=== PATIENT | female | born 1955 | race Caucasian/White ===

== ENCOUNTER 2021-12-13 22:04 | Inpatient (IN) | payer MEDICARE, OTHER ==
[~2021-12-13] VITALS: Ht 162.6 cm; Wt 72.6 kg
--- NOTE | 2021-12-13 22:30 | NUR ---
[facility]IBRA [facility] FROM SNF FOR C/O AMS, N/A AND FEVER X 2-3 DAYS. PLACED ON BED, AWAKE ALERT, BREATHING EVEN AND UNLABORED SATURATING AT 96%RA. HX OF CEREBRAL INFARCTION WITH LEFT SIDED WEAKNESS.
[2021-12-13] MEDS ORDERED: ONDANSETRON HCL/PF 4 MG/2 ML VIAL IVP ONE (23:00)
[2021-12-13] MEDS ORDERED: ONDANSETRON HCL/PF 4 MG/2 ML VIAL ONE (23:05)
--- NOTE | 2021-12-13 23:11 | NUR ---
BLOOD DRAWN AND SENT TO LAB
--- NOTE | 2021-12-13 23:12 | NUR ---
X-RAY TECH AT BEDSIDE
--- NOTE | 2021-12-13 23:25 | NUR ---
SWAB FOR COVID19 SENT TO LAB
--- NOTE | 2021-12-13 23:31 | NUR ---
PT BEING TRANSPORTED TO CT [facility]IA [facility]
[2021-12-13 23:34] LABS: BASOPHILS % (AUTO) 0.2 % (0.0-2.0); HEMATOCRIT 34 % (33-45); HEMOGLOBIN 11.1 g/dL (11.5-14.8); LYMPHOCYTES # (AUTO) 0.8 K/uL (0.8-4.8); LYMPHOCYTES % (AUTO) 3.8 % (20.0-44.0); MEAN CORPUSCULAR HGB CONC 33 g/dl (31.0-36.0); MEAN CORPUSCULAR VOLUME 87 fL (82-100); MONOCYTES # (AUTO) 1.3 K/uL (0.1-1.30); MONOCYTES % (AUTO) 6.4 % (2.0-12.0); NEUTROPHILS # (AUTO) 18.1 K/uL (1.8-8.9); NEUTROPHILS % (AUTO) 89.6 % (43.0-81.0); PLATELET COUNT (AUTO) 178 K/uL (150-450); RED BLOOD CELL COUNT(AUTO) 3.89 MIL/uL (4.0-5.2); WHITE BLOOD COUNT (AUTO) 20.2 K/uL (4.3-11.0)
[2021-12-13 23:46] LABS: CALCIUM, SERUM 8.5 mg/dL (8.5-10.1); CARBON DIOXIDE 25 mmol/L (21-32); CHLORIDE 101 mmol/L (98-107); GLUCOSE 164 mg/dL (74-106); POTASSIUM 4.3 mmol/L (3.5-5.1); SODIUM SERUM 135 mmol/L (136-145); UREA NITROGEN, BLOOD 51 mg/dL (7-18)
[2021-12-14] LABS: ALANINE AMINOTRANSFERASE 16 U/L (12-78); ALBUMIN 2.7 g/dL (3.4-5.0); ALKALINE PHOSPHATASE 73 U/L (46-116); ASPARTATE AMINOTRANSFERASE 17 U/L (15-37); BILIRUBIN,DIRECT 0.2 mg/dL (0.0-0.2); BILIRUBIN,TOTAL 0.6 mg/dL (0.2-1.0); TOTAL PROTEIN, SERUM 6.4 g/dL (6.4-8.2)
[2021-12-14 00:41] LABS: THYROID STIMULATING HORMONE 0.816 uIU/mL (0.358-3.74)
--- NOTE | 2021-12-14 00:55 | NUR ---
URINE COLLECTED AND SENT TO LAB
[2021-12-14 01:55] LABS: BILIRUBIN,URINE NEGATIVE (NEGATIVE); COLOR,URINE YELLOW (YELLOW); LEUKOCYTE ESTERASE ,URINE MODERATE (NEGATIVE); NITRITE, URINE POSITIVE (NEGATIVE); PROTEIN,URINE 30 mg/dl (NEGATIVE); UGLUCOSE NEGATIVE (NEGATIVE); UROBILINOGEN,URINE 0.2 EU/dL (0.2)
[2021-12-14 02:21] LABS: BACTERIA,URINE Few /HPF (None Seen); SQUAMOUS EPITHELIAL CELL,UR Few /HPF (None Seen)
[2021-12-14] MEDS ORDERED: CEFTRIAXONE 1GM BAG (ER ONLY) 1 GM/50 ML PIGGYBACK IV ONE (03:00)
[2021-12-14] MEDS ORDERED: ACETAMINOPHEN 325 MG TABLET PO PRN (03:00)
[2021-12-14] MEDS ORDERED: ONDANSETRON HCL/PF 4 MG/2 ML VIAL IVP PRN (03:00)
[2021-12-14] MEDS ORDERED: IV NS 0.9% 1,000 ML BAG IV ONE (03:00)
[2021-12-14] MEDS ORDERED: MORPHINE SULFATE INJ 2 MG/ML DISP.SYRIN IV PRN (03:00)
[2021-12-14] MEDS ORDERED: MAG HYDROX/AL HYDROX/SIMETH 30 ML UDC PO PRN (03:00)
[2021-12-14] MEDS: IV NS 0.9% 1,000 ML IV SCH ×3 (03:36→16:43)
--- NOTE | 2021-12-14 07:25 | NUR ---
NOT YET AVAILABLE FOR REPORT PER HOSPITAL ACCOUNT MANAGER
[2021-12-14 07:37] LABS: BASOPHILS % (AUTO) 0.1 % (0.0-2.0); HEMATOCRIT 35 % (33-45); HEMOGLOBIN 11.4 g/dL (11.5-14.8); LYMPHOCYTES # (AUTO) 0.8 K/uL (0.8-4.8); LYMPHOCYTES % (AUTO) 4.5 % (20.0-44.0); MEAN CORPUSCULAR HGB CONC 32 g/dl (31.0-36.0); MEAN CORPUSCULAR VOLUME 89 fL (82-100); MONOCYTES % (AUTO) 6.2 % (2.0-12.0); NEUTROPHILS # (AUTO) 15.1 K/uL (1.8-8.9); NEUTROPHILS % (AUTO) 89.2 % (43.0-81.0); PLATELET COUNT (AUTO) 161 K/uL (150-450); RED BLOOD CELL COUNT(AUTO) 3.99 MIL/uL (4.0-5.2)
[2021-12-14] MEDS ORDERED: MAGN400O6 PO (07:43)
[2021-12-14] MEDS ORDERED: ACET-868 PO (07:43)
[2021-12-14] MEDS ORDERED: ATOR40TA PO (07:43)
[2021-12-14] MEDS ORDERED: LOPE2TAB25 PO (07:43)
[2021-12-14] MEDS ORDERED: METO25TA20 PO (07:43)
[2021-12-14] MEDS ORDERED: ONDA4TAB5 PO (07:43)
[2021-12-14] MEDS ORDERED: NA P133E RC (07:43)
[2021-12-14] MEDS ORDERED: IPRA3AMP23 IH (07:43)
[2021-12-14] MEDS ORDERED: TAMS-12 PO (07:43)
[2021-12-14] MEDS ORDERED: LISI-768 PO (07:43)
[2021-12-14] MEDS ORDERED: BISA10SU11 RC (07:43)
[2021-12-14] MEDS ORDERED: BETA30LO2 TP (07:43)
[2021-12-14] MEDS ORDERED: PARO40TA4 PO (07:43)
[2021-12-14] MEDS ORDERED: LEVO50TA8 PO (07:43)
[2021-12-14] MEDS ORDERED: FAMO20TA8 PO (07:43)
[2021-12-14] MEDS ORDERED: LEVE500T9 PO (07:43)
[2021-12-14] MEDS ORDERED: SENN-261 PO (07:43)
--- NOTE | 2021-12-14 07:44 | NUR ---
PER JA, ROOM 310-1. PT REPORT GIVEN TO KAYLA AMADOR
[2021-12-14 07:45] LABS: CALCIUM, SERUM 8.7 mg/dL (8.5-10.1); CREATININE 2.2 mg/dL (0.6-1.3); POTASSIUM 4.5 mmol/L (3.5-5.1)
--- NOTE | 2021-12-14 08:30 | NUR ---
PT TRANSFERRED TO UNIT VIA GURNEY. WARM HANDOFF GIVEN TO RN ASSIGNED
--- NOTE | 2021-12-14 10:00 | NUR ---
RN ADMITTING NOTES PATIENT ARRIVED FROM ED VIA GURNEY ACCOMPANIED BY 1 ER STAFF. PATIENT TRANSFERRED TO BED, ORIENTED TO STAFF AND UNIT. A/Ox1, IV ACCESS ON R FA #20 G. ON 2L VIA NC, NO S/S OF RESPIRATORY DISTRESS. V/S TAKEN AND STABLE. FULL BODY CHECK DONE, SKIN INTACT. TELE MONITOR ATTACHED TO PATIENT SHOWING A-FIB WITH 104 HR. CARDIAC: HEART SOUNDS WNL, LUNG SOUNDS: SLIGHTLY DIMINISHED THROUGHOUT, GI/ INCONTINENT, SKIN INTACT, BED REST FOR NOW. SAFETY MEASURES IN PLACE: BED LOCKED AND IN LOWEST POSITION, SIDE RAILS UP x2, CALL LIGHT WITHIN REACH. WILL CONTINUE TO MONITOR.
[2021-12-14 11:31] VITALS: BP 137/62
[2021-12-14 11:48] LABS: CREATININE, URINE 92.7 MG/DL (30.0-125.0)
[2021-12-14 12:00] VITALS: BP 124/61
[2021-12-14] MEDS ORDERED: ENOXAPARIN SODIUM 40 MG/0.4 ML DISP.SYRIN SQ SCH (12:00)
[2021-12-14] MEDS: ENOXAPARIN SODIUM 30 MG/0.3 ML DISP.SYRIN SQ SCH (12:33)
[2021-12-14] MEDS: AZITHROMYCIN 500 MG in IV D5W 250 ML IV SCH (12:33)
[2021-12-14 16:00] VITALS: BP 125/67
--- NOTE | 2021-12-14 17:00 | NUR ---
RN NOTES PATIENT COMPLAINED OF PAIN, PRN TYLENOL GIVEN, WILL CONTINUE TO MONITOR.
--- NOTE | 2021-12-14 18:35 | NUR ---
BUSINESS LAW TEACHER CLOSING NOTES PATIENT SLEEPING IN BED, STABLE ON 2L VIA NC, NO S/S OF RESPIRATORY DISTRESS. A/Ox1, RESPONDS TO VERBAL AND TACTILE STIMULI. IV ACCESS R FA #20 WITH NS RUNNING 75 ML/HR. INTACT AND PATENT, NO S/S OF INFILTRATION. TELE MONITORING SHOWS A-FIB HR OF 92. INCONTINENT. ALL PRESCRIBED MEDICATION ADMINISTERED. SAFETY MEASURES MAINTAINED: BED LOCKED AND IN LOWEST POSITION, SIDE RAILS UP x3, BED ALARM ON, HOB ELEVATED, AND CALL LIGHT WITHIN REACH. WILL ENDORSE TO NEXT SHIFT ANY STEPHANIE.
--- NOTE | 2021-12-14 19:40 | NUR ---
ELECTRIC LIFT TRUCK DRIVER OPENING NOTES; RECEIVED PATIENT SLEEPING IN BED,BUT EASY TO AROUSED.AOX1-2,ON 2L VIA NC IZABELLA WELL,NO SIGN SOB/DISTRESS NOTED. IV ACCESS R FA #20 WITH NS RUNNING 75 ML/HR. INTACT AND PATENT, SAFETY MEASURES MAINTAINED: BED LOCKED AND IN LOWEST POSITION, SIDE RAILS UP x3, BED ALARM ON, CALL LIGHT WITHIN REACH. WILL CONTINUE TO MONITOR.
[2021-12-14 20:00] VITALS: BP 107/65
[2021-12-14] MEDS ORDERED: CEFEPIME 1 GM VIAL ONE (22:31)
[2021-12-14] MEDS: CEFEPIME 2 GM in IV D5W 100 ML IV SCH (23:35)
[2021-12-15] VITALS: BP 118/61
[2021-12-15 04:00] VITALS: BP 124/77
--- NOTE | 2021-12-15 06:23 | NUR ---
CANARY RAISER OPENING NOTES; PATIENT IN BED SLEEPING BUT EASY TO AROUSED.AOX2,ON 2L O2 VIA NC IZABELLA WELL,NO SIGN SOB/DISTRESS NOTED.NO COMPLAINE OF PAIN/DISCOMFORT DURING SHIFT,DUE MEDS GIVEN ORDER,ALL NEEDS ATTENDED,KEPT PT CLEANED AND DRY AT ALL TIME, IV ACCESS R FA #20 WITH NS RUNNING 75 ML/HR. INTACT AND PATENT, SAFETY MEASURES MAINTAINED: BED LOCKED AND IN LOWEST POSITION, SIDE RAILS UP x3, CALL LIGHT WITHIN REACH. WILL ENDORSED TO NEXT SHIFT.
[2021-12-15 06:37] LABS: BASOPHILS % (AUTO) 0.1 % (0.0-2.0); EOSINOPHILS % (AUTO) 0.2 % (0.0-6.0); HEMATOCRIT 30 % (33-45); HEMOGLOBIN 9.8 g/dL (11.5-14.8); LYMPHOCYTES # (AUTO) 0.6 K/uL (0.8-4.8); LYMPHOCYTES % (AUTO) 5.6 % (20.0-44.0); MEAN CORPUSCULAR HGB CONC 33 g/dl (31.0-36.0); MEAN CORPUSCULAR VOLUME 88 fL (82-100); MONOCYTES # (AUTO) 0.7 K/uL (0.1-1.30); MONOCYTES % (AUTO) 6.1 % (2.0-12.0); NEUTROPHILS # (AUTO) 9.5 K/uL (1.8-8.9); PLATELET COUNT (AUTO) 132 K/uL (150-450); RED BLOOD CELL COUNT(AUTO) 3.37 MIL/uL (4.0-5.2); WHITE BLOOD COUNT (AUTO) 10.8 K/uL (4.3-11.0)
[2021-12-15 07:00] LABS: ALBUMIN 2.2 g/dL (3.4-5.0); BILIRUBIN,TOTAL 0.6 mg/dL (0.2-1.0); CALCIUM, SERUM 8.2 mg/dL (8.5-10.1); CREATININE 2.2 mg/dL (0.6-1.3); MAGNESIUM 1.9 mg/dL (1.8-2.4); PHOSPHORUS 3.9 mg/dL (2.5-4.9); POTASSIUM 4.3 mmol/L (3.5-5.1); TOTAL PROTEIN, SERUM 5.9 g/dL (6.4-8.2)
--- NOTE | 2021-12-15 07:40 | NUR ---
ms rn received on bed, awake,alert oriented x4,not in any form of distress. respirations evem and unlabored,no sob noted, repositioned for comfort,will monitor patient.
[2021-12-15 08:00] VITALS: BP 141/75
[2021-12-15] MEDS ORDERED: CEFTRIAXONE 1 G in IV D5W 50 ML IV SCH (09:00)
--- NOTE | 2021-12-15 09:00 | NUR ---
ms myles breakfast served,due meds given, tolerated well.
[2021-12-15] MEDS: IV NS 0.9% 1,000 ML IV SCH ×2 (13:58→19:00)
[2021-12-15] MEDS: AZITHROMYCIN 500 MG in IV D5W 250 ML IV SCH (13:58)
[2021-12-15] MEDS: ENOXAPARIN SODIUM 30 MG/0.3 ML DISP.SYRIN SQ SCH (14:04)
[2021-12-15 16:00] VITALS: BP 142/74
[2021-12-15] MEDS ORDERED: BISACODYL SUPP (10 MG) 10 MG/SUPP.RECT SUPP.RECT RC PRN (17:00)
--- NOTE | 2021-12-15 17:00 | NUR ---
ms shar hilton reconcilled meds,given tolerated well.
[2021-12-15] MEDS ORDERED: ALBUTEROL FS 2.5 MG/3 ML VIAL.NEB NEB PRN (17:30)
[2021-12-15] MEDS: PAROXETINE HCL 20 MG TABLET PO SCH (17:59)
[2021-12-15] MEDS ORDERED: IPRATROPIUM NEB FS 0.5 MG/2.5 ML AMPUL.NEB NEB PRN (18:00)
[2021-12-15] MEDS ORDERED: ALBUTEROL FS 2.5 MG/0.5 ML VIAL.NEB NEB PRN (18:00)
[2021-12-15] MEDS: METOPROLOL TARTRATE 25 MG TABLET PO SCH (18:00)
--- NOTE | 2021-12-15 18:38 | NUR ---
ms rn on bed, no distress noted,all needs attended, pt is now on med/surge status.
--- NOTE | 2021-12-15 19:34 | NUR ---
WASH MILL OPERATOR OPENING NOTES; RECEIVED PATIENT SLEEPING IN BED,BUT EASY TO AROUSED.AOX1-2,ON 2L VIA NC IZABELLA WELL,NO SIGN SOB/DISTRESS NOTED. IV ACCESS R FA #20 WITH NS RUNNING 75 ML/HR. INTACT AND PATENT, SAFETY MEASURES MAINTAINED: BED LOCKED AND IN LOWEST POSITION, SIDE RAILS UP x3, BED ALARM ON, CALL LIGHT WITHIN REACH. WILL CONTINUE TO MONITOR.
[2021-12-15 20:04] VITALS: BP 122/67
[2021-12-15] MEDS: LEVETIRACETAM (250 MG) 250 MG TABLET PO SCH (21:20)
[2021-12-15] MEDS: FAMOTIDINE (20 MG) 20 MG TABLET PO SCH (21:20)
[2021-12-15] MEDS: SENNOSIDES 8.6 MG TABLET PO SCH (21:20)
[2021-12-15] MEDS: ATORVASTATIN 40 MG TABLET PO SCH (21:21)
[2021-12-15] MEDS: CEFEPIME 2 GM in IV D5W 100 ML IV SCH (21:23)
--- NOTE | 2021-12-16 06:08 | NUR ---
CHIEF NURSE ANESTHETIST CLOSING NOTES; PATIENT IN BED SLEEPING BUT EASY TO AROUSED.AOX2,ON 2L O2 VIA NC IZABELLA WELL,NO SIGN SOB/DISTRESS NOTED.NO COMPLAINE OF PAIN/DISCOMFORT DURING SHIFT,DUE MEDS GIVEN ORDER,ALL NEEDS ATTENDED,KEPT PT CLEANED AND DRY AT ALL TIME, IV ACCESS R FA #20 WITH NS RUNNING 75 ML/HR. INTACT AND PATENT, SAFETY MEASURES MAINTAINED: BED LOCKED AND IN LOWEST POSITION, SIDE RAILS UP x3, CALL LIGHT WITHIN REACH. WILL ENDORSED TO NEXT SHIFT.
--- NOTE | 2021-12-16 07:30 | NUR ---
RN Opening Note PT AOx3, able to express her own concerns. Discussed plan of care with pt, she agrees. Will continue to monitor throughout shift. All safety precautions taken, bed at lowest position, call light and table within reach. IV site with no signs of infiltration. Will provide care as needed, and medications as prescribed
[2021-12-16 08:00] VITALS: BP 138/72
[2021-12-16] MEDS: IV NS 0.9% 1,000 ML IV SCH ×2 (08:20→22:07)
[2021-12-16] MEDS: LEVETIRACETAM (250 MG) 250 MG TABLET PO SCH ×2 (09:06→22:06)
[2021-12-16] MEDS: TAMSULOSIN 0.4 MG CAP.SR.24H PO SCH (09:06)
[2021-12-16] MEDS: LEVOTHYROXINE SODIUM 50 MCG TABLET PO SCH (09:06)
[2021-12-16] MEDS: LISINOPRIL (5MG) 5 MG TABLET PO SCH (09:07)
[2021-12-16] MEDS: PAROXETINE HCL 20 MG TABLET PO SCH (09:07)
[2021-12-16] MEDS: METOPROLOL TARTRATE 25 MG TABLET PO SCH ×2 (09:08→17:24)
[2021-12-16] MEDS: ENOXAPARIN SODIUM 30 MG/0.3 ML DISP.SYRIN SQ SCH (11:39)
[2021-12-16] MEDS: AZITHROMYCIN 500 MG in IV D5W 250 ML IV SCH (12:44)
[2021-12-16 16:00] VITALS: BP 127/60
--- NOTE | 2021-12-16 18:23 | NUR ---
RN Closing Note. PT AOx2, able to express her own concerns. Vital Signs are Stable throughout shift. Administered medications as prescribed and provided care throughout shift as needed. All safety precautions taken, call light and table within reach, bed at lowest position. Will endorse to night nurse plan of care.
--- NOTE | 2021-12-16 19:30 | NUR ---
MSRN SLEEPING AWAKENED WHEN CALLED. ALERT/ORIENTED X2, COOPERATIVE. PRESENT IVF CONNECTED AGREED TO BE RECONNECTED AT LOWER RATE. ALL NEEDS ATTENDED. REPOSITIONED, KEPT COMFORTABLE. CONTINUED.
[2021-12-16 20:00] VITALS: BP 97/47
[2021-12-16] MEDS: FAMOTIDINE (20 MG) 20 MG TABLET PO SCH (22:05)
[2021-12-16] MEDS: ATORVASTATIN 40 MG TABLET PO SCH (22:05)
[2021-12-16] MEDS: SENNOSIDES 8.6 MG TABLET PO SCH (22:06)
[2021-12-16] MEDS: CEFEPIME 2 GM in IV D5W 100 ML IV SCH (22:08)
--- NOTE | 2021-12-17 06:32 | NUR ---
MSRN REMAINS UNCHANGED OBSERVED
--- NOTE | 2021-12-17 07:30 | NUR ---
RN Receiving Note PT AOx2-3, able to express her own concerns, no signs of distress or discomfort. Patient sleeping but easily aroused. Discussed plan of care with pt, she agrees. Patient with no signs of distress. IV fluids running as prescribed, no pain reported , no swelling, no redness. All Safety precautions taken, call light and table within reach, bed at lowest position. Will continue to monitor throughout shift, provide care as needed, and administer medications as prescribed
[2021-12-17 08:00] VITALS: BP 123/60
[2021-12-17] MEDS: LEVOTHYROXINE SODIUM 50 MCG TABLET PO SCH (08:15)
[2021-12-17] MEDS: TAMSULOSIN 0.4 MG CAP.SR.24H PO SCH (08:15)
[2021-12-17] MEDS: LISINOPRIL (5MG) 5 MG TABLET PO SCH (08:15)
[2021-12-17] MEDS: LEVETIRACETAM (250 MG) 250 MG TABLET PO SCH ×2 (08:16→21:15)
[2021-12-17] MEDS: METOPROLOL TARTRATE 25 MG TABLET PO SCH ×2 (08:16→17:20)
[2021-12-17] MEDS: PAROXETINE HCL 20 MG TABLET PO SCH (08:16)
[2021-12-17] MEDS: IV NS 0.9% 1,000 ML IV SCH (11:38)
[2021-12-17] MEDS: AZITHROMYCIN 500 MG in IV D5W 250 ML IV SCH (13:19)
[2021-12-17] MEDS: ENOXAPARIN SODIUM 30 MG/0.3 ML DISP.SYRIN SQ SCH (13:20)
[2021-12-17 16:00] VITALS: BP 111/57
--- NOTE | 2021-12-17 18:12 | NUR ---
RN Closing Note PT AOxx2 but able to express her concerns and needs. Patient did not eat much throughout shift, stated she is not hungry. All safety precautions taken, call light and table within reach, bed at lowest position. Administered medications and antibiotics as prescribed, IV with no signs of infiltration. Patient remained safe throughout shift.
[2021-12-17 18:41] LABS: CALCIUM, SERUM 8.1 mg/dL (8.5-10.1); CREATININE 1.8 mg/dL (0.6-1.3); POTASSIUM 3.9 mmol/L (3.5-5.1)
[2021-12-17 20:00] VITALS: BP 118/59
--- NOTE | 2021-12-17 20:18 | NUR ---
MS RN OPENING NOTE PATIENT SLEEPING IN BED, EASILY AWAKENED, PT ALERT/ORIENTED X 2. PATIENT STABLE ON 2LPM OF OXYGEN VIA NASAL CANNULA, NO S/S OF DISTRESS OR SOB NOTED, BREATHING EVEN AND UNLABORED. IV ACCESS ON RIGHT HAND #20G INTACT AND PATENT, INFUSING NS @ 75 ML/HR. SAFETY MEASURES IN PLACE: CALL LIGHT WITHIN REACH, SIDE RAILS UP X 2, BED LOCKED IN LOWEST POSITION, BED ALARM ON. WILL CONTINUE TO MONITOR PATIENT
[2021-12-17] MEDS: FAMOTIDINE (20 MG) 20 MG TABLET PO SCH (21:15)
[2021-12-17] MEDS: CEFEPIME 2 GM in IV D5W 100 ML IV SCH (21:15)
[2021-12-17] MEDS: ATORVASTATIN 40 MG TABLET PO SCH (21:15)
[2021-12-17] MEDS: SENNOSIDES 8.6 MG TABLET PO SCH (21:16)
[2021-12-18] MEDS: IV NS 0.9% 1,000 ML IV SCH ×2 (00:50→13:16)
--- NOTE | 2021-12-18 06:16 | NUR ---
MS RN CLOSING NOTE PATIENT SLEEPING IN BED, EASILY AWAKENED, PT ALERT/ORIENTED X 1-2, CONFUSED AT TIMES. NO SIGNIFICANT CHANGES THROUGHOUT SHIFT, PATIENT SLEPT WELL THROUGH THE NIGHT. PATIENT STABLE ON 2LPM OF OXYGEN VIA NASAL CANNULA, NO S/S OF DISTRESS OR SOB NOTED, BREATHING EVEN AND UNLABORED. IV ACCESS ON RIGHT HAND #20G INTACT AND PATENT, INFUSING NS @ 75 ML/HR. MEDICATIONS GIVEN ORDERED, PT NEEDS MET THROUGHOUT SHIFT. SAFETY MEASURES IN PLACE: CALL LIGHT WITHIN REACH, SIDE RAILS UP X 2, BED LOCKED IN LOWEST POSITION, BED ALARM ON. WILL ENDORSE TO DAYSHIFT NURSE FOR CONTINUITY OF CARE
--- NOTE | 2021-12-18 06:25 | NUR ---
MS KAYLA NOTES Patient in bed alert oriented x 2 with period of confusion. No acute distress noted. Breathing unlanotred. IV access patent and intact, no redness, no swelling noted. Head of bed elevated. Safety measures in place. Call light within reach. Will continue to monitor accordingly Addendum: 12/18/21 at 1714 by CONNIE GÓMEZ RN error- disregard above notes
--- NOTE | 2021-12-18 07:25 | NUR ---
MS RN NOTES Patient in bed alert oriented x 2 with period of confusion. No acute distress noted. Breathing unlabored. IV access patent and intact, no redness, no swelling noted. Head of bed elevated. Safety measures in place. Call light within reach. Will continue to monitor accordingly
[2021-12-18 08:00] VITALS: BP 122/66
[2021-12-18] MEDS: LEVOTHYROXINE SODIUM 50 MCG TABLET PO SCH (08:04)
[2021-12-18] MEDS: TAMSULOSIN 0.4 MG CAP.SR.24H PO SCH (08:24)
[2021-12-18] MEDS: LEVETIRACETAM (250 MG) 250 MG TABLET PO SCH (08:24)
[2021-12-18 08:25] VITALS: BP 122/66
[2021-12-18] MEDS: PAROXETINE HCL 20 MG TABLET PO SCH (08:25)
[2021-12-18] MEDS: METOPROLOL TARTRATE 25 MG TABLET PO SCH (08:25)
[2021-12-18] MEDS: LISINOPRIL (5MG) 5 MG TABLET PO SCH (08:25)
--- NOTE | 2021-12-18 09:00 | NUR ---
PATIENT TRANSPORTED TO OPERATING ROOM IN STABLE CONDITION Addendum: 12/18/21 at 0754 by CONNIE GÓMEZ RN ERROR- DISREGARD ABOVE NOTES, WRONG PATIENT
[2021-12-18] MEDS ORDERED: LEVO750T46 PO (10:57)
[2021-12-18] MEDS: ENOXAPARIN SODIUM 30 MG/0.3 ML DISP.SYRIN SQ SCH (12:17)
[2021-12-18] MEDS: AZITHROMYCIN 500 MG in IV D5W 250 ML IV SCH (12:18)
--- NOTE | 2021-12-18 16:50 | NUR ---
MS WARPER CREELER NOTES PATIENT DISCHARGE TO [facility] REPORT GIVEN TO JOHN GARZA. NO ACUTE DISTRESS NOTED. BREATHING UNLABORED. DISCHARGE INSTRUCTIONS GIVEN TO THE JOHN RN INCLUDING FOLLOW UP AND CONTINUATION OF ANTIBIOTIC. IV ACCESS REMOVED , NO REDNESS, NO SWELLING, NO BLEEDING NOTED. DISCHARGE PAPERS GIVEN TO THE EMT PERSONNEL TO BE GIVEN TO SNF PERSONNEL. ALL BELONGINGS ACCOUNTED FOR. SKIN IS INTACT. PICKED UP VIA AMBULANCE IN A GURNEY ACCOMPANIED BY 2 EMT PERSONNEL IN STABLE CONDITION.
== END 2021-12-18 16:46 | DRG 871 ==
LOC: ER 22:10 → TRANSITION 12-14 05:05 → TELE 12-14 07:20 → MED 12-15 20:00
PROVIDERS: ADMIT Internal Medicine; ATTEND Registered Nurse
DX: A41.9 Sepsis, unspecified organism (principal); G93.41 Metabolic encephalopathy; N17.0 Acute kidney failure with tubular necrosis; J69.0 Pneumonitis due to inhalation of food and vomit; N39.0 Urinary tract infection, site not specified; E87.1 Hypo-osmolality and hyponatremia; I69.354 Hemiplegia and hemiparesis following cerebral infarction affecting left non-dominant side; E11.9 Type 2 diabetes mellitus without complications; E03.9 Hypothyroidism, unspecified; I48.91 Unspecified atrial fibrillation; Z20.822 Contact with and (suspected) exposure to COVID-19; D63.8 Anemia in other chronic diseases classified elsewhere; E66.9 Obesity, unspecified; E88.09 Other disorders of plasma-protein metabolism, not elsewhere classified; I10 Essential (primary) hypertension; J32.9 Chronic sinusitis, unspecified; Z68.27 Body mass index [BMI] 27.0-27.9, adult; B96.89 Other specified bacterial agents as the cause of diseases classified elsewhere
CPT/HCPCS: 36415; 70450-TC; 71045-TC; 76770-TC; 80048-TC; 80053-TC; 80076-TC; 81001; 82570-TC; 83735-TC; 84100-TC; 84300-TC; 84443-TC; 84484-TC; 85025-TC; 87040-TC; 87081-TC; 87086-TC; 94799-TC; C9803; G0378; J0456; J0692; J0696; J1650; J2405; J7030; J7060